=== PATIENT | male | born 1995 | race Caucasian/White ===

== ENCOUNTER 2017-02-11 17:42 | Emergency (ER) | payer SELFPAY ==
[2010-05-27 01:30] VITALS: BMI 24.3
== END 2017-02-11 20:20 | disposition home or self-care (01) ==
LOC: D.ER 17:42
DX: K02.9 Dental caries, unspecified (principal); K08.89 Other specified disorders of teeth and supporting structures

== ENCOUNTER 2017-05-23 10:21 | Emergency (ER) | payer SELFPAY ==
[2010-05-27 01:30] VITALS: BMI 24.3
== END 2017-05-23 11:32 | disposition home or self-care (01) ==
LOC: D.ER 10:21
DX: K04.7 Periapical abscess without sinus (principal); K08.89 Other specified disorders of teeth and supporting structures

== ENCOUNTER 2017-07-14 20:07 | Emergency (ER) | payer SELFPAY ==
[2010-05-27 01:30] VITALS: BMI 24.3
== END 2017-07-14 21:15 | disposition home or self-care (01) ==
LOC: D.ER 20:07
DX: K04.7 Periapical abscess without sinus (principal); K08.89 Other specified disorders of teeth and supporting structures; F17.200 Nicotine dependence, unspecified, uncomplicated

== ENCOUNTER 2017-07-15 22:24 | Emergency (ER) | payer SELFPAY ==
[2010-05-27 01:30] VITALS: BMI 24.3
[2017-07-16 01:07] LABS: CREATINE KINASE 292 UL (21-232)
[2017-07-16 01:16] LABS: CKMB 3.9 U/L (0.0-3.6); TROPONIN-I < 0.017 ng/mL (0.000-0.060)
== END 2017-07-16 00:55 | disposition home or self-care (01) ==
LOC: D.ER 22:24
PROVIDERS: Nurse Practitioner Family
DX: F41.9 Anxiety disorder, unspecified (principal); K08.89 Other specified disorders of teeth and supporting structures

== ENCOUNTER 2017-07-31 13:14 | Emergency (ER) | payer MEDICAID ==
[2010-05-27 01:30] VITALS: BMI 24.3
== END 2017-07-31 16:34 | disposition home or self-care (01) ==
LOC: D.ER 13:14
DX: K04.7 Periapical abscess without sinus (principal); K08.89 Other specified disorders of teeth and supporting structures; K59.00 Constipation, unspecified; F41.9 Anxiety disorder, unspecified

== ENCOUNTER → 2017-08-05 19:41 | Emergency (ER) | payer MEDICAID ==
[2010-05-27 01:30] VITALS: BMI 24.3
== END | disposition left against medical advice (07) ==
LOC: D.ER 19:41
DX: R35.0 Frequency of micturition (principal)

== ENCOUNTER 2017-08-05 20:19 | Emergency (ER) | payer MEDICAID | END 2017-08-06 02:21 | disposition home or self-care (01) | LOC: D.ER 20:19 | DX: K59.00 Constipation, unspecified (principal); N43.3 Hydrocele, unspecified; N50.3 Cyst of epididymis; F17.200 Nicotine dependence, unspecified, uncomplicated ==

== ENCOUNTER 2017-08-15 16:16 | Emergency (ER) | payer MEDICAID ==
[2010-05-27 01:30] VITALS: BMI 24.3
[2017-09-01 09:00] VITALS: BMI 21.6
== END 2017-08-15 17:25 | disposition home or self-care (01) ==
LOC: D.ER 16:16
DX: K59.09 Other constipation (principal)

== ENCOUNTER 2017-09-01 07:08 | Day surgery (SDC) | payer MEDICAID ==
[~2017-09-01] VITALS: Ht 170.2 cm; Wt 62.6 kg
--- NOTE | ~2017-09-01 | OP ---
PATIENT NAME: TD PARIS MEDICAL RECORD: [id number] LOCATION:D[facility] ADMISSION DATE: SURGEON: THEO JOEL MD DATE OF OPERATION: 09/01/2017 SURGEON: Theo Joel MD ANESTHESIA: MAC by Obed Fleming MD PREOPERATIVE DIAGNOSIS: Interstitial cystitis. POSTOPERATIVE DIAGNOSIS: Interstitial cystitis. PROCEDURES: Cystoscopy and intravesical Rimso-50 installation times 50 mL. FINDINGS: Normal urethra with no strictures and a nonobstructive prostate. Within the bladder, there are single ureteral orifices bilaterally. No bladder tumors were seen. There is diffuse bladder inflammation present. CLINICAL HISTORY: This is a 22-year-old male, who has a myriad of complaints, but the main ones are suprapubic pain, testicular pain, back pain, urinary urgency, and frequency. He has a history of drug abuse including methamphetamines, marijuana, and ice since age 15. He also smokes heavily, 1 pack per day since age 15. His voiding symptoms may be from interstitial cystitis and therefore, we are performing cystoscopy today. Differential diagnosis includes a urethral stricture and therefore, we will be able to see if he has a stricture on cystoscopy. He has no allergies. 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 He has quite severe GERD and therefore anesthesia was reluctant to give him anything but local anesthetic. He did get some IV sedation; however. We gave him lidocaine jelly into the urethra also. DESCRIPTION OF PROCEDURE: The patient was given IV sedation. He was placed into dorsal lithotomy position and prepped and draped. Lidocaine jelly was injected into the urethra. A 17-Nepali cystoscope with 30-degree lens was used for visualization. Findings are as outlined above. Primarily, we saw diffuse bladder inflammation with no signs of bladder tumors and no strictures in the urethra. The bladder was then emptied through the cystoscope sheath and then the scope was removed entirely. The red rubber catheter was inserted into the bladder and then through the catheter 50 mL of Rimso-50 solution was injected into the bladder. The catheter was then removed, leaving the solution in the bladder. The patient will hold the medication for 15 minutes and then void it out. He will see me in followup next week to have treatment #[address] Joel. TRANSINT:[id number] Voice Confirmation ID: [id number] DOCUMENT ID: [id number] THEO JOEL MD at 1312 CC: [id number] DICTATION DATE: 09/01/17 1136 EDUCATIONAL INSTITUTION CURATOR: 09/01/17 1231 [facility] [place] [id number] [place] [id number]
[2017-09-01] MEDS ORDERED: FLUTICASONE PRO16 GM NASAL (08:48)
[2017-09-01] MEDS ORDERED: AUGMENTIN 875-11 TAB PO (08:48)
[2017-09-01] MEDS ORDERED: PROBIOTIC250 MG PO (08:50)
[2017-09-01 09:00] VITALS: BP 129/83; Ht 170.2 cm; Wt 62.6 kg
== END 2017-09-01 12:20 | disposition home or self-care (01) ==
LOC: D.OPS 07:08 → D.PAN 09:45 → D.OPS 12:20
DX: N30.10 Interstitial cystitis (chronic) without hematuria (principal); K21.9 Gastro-esophageal reflux disease without esophagitis; Z01.812 Encounter for preprocedural laboratory examination

== ENCOUNTER 2018-02-04 18:50 | Emergency (ER) | payer MEDICAID ==
[~2018-02-04] VITALS: Ht 170.2 cm; Wt 68.2 kg
[~2018-02-04 18:50] MED LIST: AUGMENTIN 875-11 TAB PO; FLUTICASONE PRO16 GM NASAL; PROBIOTIC250 MG PO
[2018-02-04 19:40] VITALS: Ht 170.2 cm; Wt 68.2 kg
[2018-02-04] MEDS ORDERED: VIBRAMYCIN 100100 MG PO (21:07)
[2018-02-04] MEDS ORDERED: TORADOL10 MG PO (21:07)
[2018-02-04 21:33] VITALS: BP 117/73
== END 2018-02-04 21:37 | disposition home or self-care (01) ==
LOC: D.ER 18:50
DX: R23.8 Other skin changes (principal); F17.200 Nicotine dependence, unspecified, uncomplicated

== ENCOUNTER 2018-03-01 02:24 | Emergency (ER) | payer SELFPAY ==
[~2018-03-01] VITALS: Ht 170.2 cm; Wt 68.2 kg
[~2018-03-01 02:24] MED LIST changes: +TORADOL10 MG PO; +VIBRAMYCIN 100100 MG PO
[2018-03-01 02:29] VITALS: Ht 170.2 cm; Wt 68.2 kg
[2018-03-01 03:15] LABS: BASOPHILS 0.6 % (0-2); HEMOGLOBIN 15.1 g/dL (13.5-17.5); IMMATURE GRANULOCYTES 0.2 % (0-5); LYMPHOCYTES 44.6 % (15-50); MCH 32.2 pg (26.0-34.0); MCV 89.6 fL (80.0-100.0); MEAN PLATELET VOLUME 9.7 fL (7.4-10.4); MONOCYTES 11.2 % (2-11); NEUTROPHILS 42.4 % (40-80); PLATELET COUNT 254 10x3/uL (130-400); RBC 4.69 10x6/uL (4.20-6.10); RDW 12.4 % (11.5-14.5); WBC 5.2 10x3/uL (4.8-10.8)
[2018-03-01 03:18] LABS: UDS - AMPHET POSITIVE QUAL (NEGATIVE); UDS - BARB NEGATIVE QUAL (NEGATIVE); UDS - BENZO NEGATIVE QUAL (NEGATIVE); UDS - COCAINE NEGATIVE QUAL (NEGATIVE); UDS - OPIATE NEGATIVE QUAL (NEGATIVE); UDS - PCP NEGATIVE QUAL (NEGATIVE); UDS - THC POSITIVE QUAL (NEGATIVE)
[2018-03-01 03:22] LABS: APPEARANCE CLEAR (CLEAR); BILIRUBIN NEGATIVE (NEGATIVE); COLOR YELLOW (YELLOW); GLUCOSE NEGATIVE (NEGATIVE); KETONE NEGATIVE (NEGATIVE); NITRITE NEGATIVE (NEGATIVE); PROTEIN NEGATIVE (NEGATIVE); SPECIFIC GRAVITY 1.015 (1.005-1.020); UROBILINOGEN NORMAL (NORMAL)
[2018-03-01 03:24] LABS: AMORPHOUS SEDIMENT <1+ /lpf (NONE SEEN); BACTERIA FEW /hpf (NONE SEEN); EPITHELIAL CELLS 0-5 /hpf (0-5); RED CELLS - URINE 0-5 /hpf (0-5); WHITE CELLS - URINE 0-5 /hpf (0-5)
[2018-03-01 03:29] LABS: ALBUMIN 3.9 g/dL (3.4-5.0); ALKALINE PHOSPHATASE 59 U/L (46-116); ALT (SGPT) 22 U/L (10-68); BILIRUBIN - TOTAL 0.28 mg/dL (0.2-1.3); CALC OSMOLALITY 277 mosm/kg (275-300); CALCIUM 8.5 mg/dL (8.5-10.1); CARBON DIOXIDE 30.1 mmol/L (21.0-32.0); CHLORIDE - SERUM 102 mmol/L (98-107); CREATININE - SERUM 0.9 mg/dL (0.6-1.3); GLUCOSE 75 mg/dL (74-106); POTASSIUM - SERUM 3.6 mmol/L (3.5-5.1); PROTEIN - SERUM 7.2 g/dL (6.4-8.2); SODIUM 140 mmol/L (136-145); UREA NITROGEN 13 mg/dL (7-18); eGFR NON AFRICAN AMERICAN > 90 mL/min (90-120)
[2018-03-01 03:40] LABS: CKMB 2.8 U/L (0.0-3.6); CREATINE KINASE 282 UL (21-232)
[2018-03-01 03:45] LABS: TROPONIN-I < 0.017 ng/mL (0.000-0.060)
[2018-03-01] MEDS ORDERED: LEVAQUIN750 MG PO (04:01)
[2018-03-01] MEDS ORDERED: ZOFRAN4 MG PO (04:01)
[2018-03-01 04:34] VITALS: BP 140/88
== END 2018-03-01 04:35 | disposition home or self-care (01) ==
LOC: D.ER 02:24
PROVIDERS: Family Medicine
DX: J20.9 Acute bronchitis, unspecified (principal); F19.10 Other psychoactive substance abuse, uncomplicated; R07.9 Chest pain, unspecified; R00.0 Tachycardia, unspecified; G35 Multiple sclerosis; F17.200 Nicotine dependence, unspecified, uncomplicated

== ENCOUNTER 2018-07-14 09:45 | Emergency (ER) | payer OTHER ==
[~2018-07-14] VITALS: Ht 170.2 cm; Wt 68.2 kg
[~2018-07-14 09:45] MED LIST changes: +LEVAQUIN750 MG PO; +ZOFRAN4 MG PO
[2018-07-14 10:23] VITALS: Ht 170.2 cm; Wt 68.2 kg
[2018-07-14] MEDS ORDERED: CLEOCIN HCL300 MG PO (12:21)
[2018-07-14] MEDS ORDERED: TORADOL10 MG PO (12:23)
[2018-07-14 15:13] VITALS: BP 155/116
== END 2018-07-14 15:14 | disposition home or self-care (01) ==
LOC: D.ER 09:45
DX: K02.9 Dental caries, unspecified (principal); K05.20 Aggressive periodontitis, unspecified; K08.89 Other specified disorders of teeth and supporting structures; F17.200 Nicotine dependence, unspecified, uncomplicated

== ENCOUNTER 2020-01-17 10:19 | Emergency (ER) | payer SELFPAY ==
[~2020-01-17] VITALS: Ht 170.2 cm; Wt 63.6 kg
[~2020-01-17 10:19] MED LIST changes: +CLEOCIN HCL300 MG PO
[2020-01-17 10:41] VITALS: BP 148/95; Ht 170.2 cm; Wt 63.6 kg
== END 2020-01-17 11:10 | disposition home or self-care (01) ==
LOC: D.ER 10:19
DX: R51 Headache (principal); F15.10 Other stimulant abuse, uncomplicated; K21.9 Gastro-esophageal reflux disease without esophagitis